=== PATIENT | male | born 1965 | race Caucasian/White ===

== ENCOUNTER 2016-08-23 22:31 | Emergency (ER) | payer MEDICARE, OTHER ==
[~2016-08-23 22:31] MED LIST: ALBUTEROL17 GM INH; ALPRAZOLAM; BENTYL10 MG PO; BENZONATATE PO; BLOOD PRESSURE MED; DULERA 100 MCG/13 GM IH; FLEXERIL; GABAPENTIN300 MG PO; GUAIFENESIN W/C10 M1 PO; LISINOPRIL PO; MEDROL4 MG/DOSE- PO; METOPROLOL SUCC25 MG PO; NAPROXEN; NORCO1 TAB 10/3 PO; OMNICEF300 MG PO; PREDNISONE PO; SEROQUEL PO; TESSALON PERLE100 M1 PO; TRAMADOL HCL50 M2 PO; TRILEPTAL; VICODIN 5/500 T1 TAB; ZITHROMAX PO; ZOFRAN PO
[2016-08-23 23:20] LABS: URINE SOURCE CLEAN CATCH
[2016-08-23 23:23] LABS: URINE APPEARANCE CLEAR; URINE BILIRUBIN NEG (NEG); URINE BLOOD NEG (NEG); URINE COLOR YELLOW; URINE GLUCOSE NEG (NORM); URINE KETONE NEG (NEG); URINE LEUKOCYTE ESTERASE NEG (NEG); URINE NITRATE NEG (NEG); URINE PROTEIN NEG (NEG); URINE UROBILINOGEN 0.2 MG/DL (NORM)
[2016-08-23 23:32] LABS: MICRO INDICATED? NO
[2016-08-23 23:49] LABS: BASOPHIL% 0.7 % (0-2.5); EOSINOPHIL# 0.4 X10e3 (0-0.7); EOSINOPHIL% 5.9 % (0.0-7.0); HEMATOCRIT 46.5 % (38.0-50.0); HEMOGLOBIN 15.7 gm/dL (13.0-16.0); LYMPHOCYTE# 1.7 X10e3 (1.0-3.5); LYMPHOCYTE% 26.7 % (17.0-45.0); MEAN CELL VOLUME 92.4 FL (83-96); MEAN CORPUSCULAR HEMOGLOBIN 31.2 PG (28-34); MEAN CORPUSCULAR HGB CONC 33.7 g/dL (30-36); MEAN PLATELET VOLUME 8.2 FL (6.5-11.5); MONOCYTE# 0.5 X10e3 (0-1.0); MONOCYTE% 7.4 % (3.0-12.0); NEUTROPHIL# 3.8 X10e3 (1.5-7.1); NEUTROPHIL% 59.3 % (40-75); PLATELET COUNT 179 X10e3 (140-420); RED BLOOD COUNT 5.03 X10e (3.90-5.60); WHITE BLOOD COUNT 6.5 X10e3 (4.0-10.5)
[2016-08-24] LABS: DIFF IND NO
[2016-08-24 00:08] LABS: BUN/CREATININE RATIO 20.76; CREATININE SERUM 1.3 mg/dL (0.6-1.4); GLOM FILT RATE Estimated 62.3 mL/min (>60); POTASSIUM 3.9 mmol/L (3.5-5.1)
== END 2016-08-24 01:05 | disposition home or self-care (01) ==
LOC: SED 22:31
PROVIDERS: Emergency Medicine
DX: R10.9 Unspecified abdominal pain (principal); R04.0 Epistaxis; R51 Headache
CPT/HCPCS: 36415; 80048; 81003; 85025; 99284

== ENCOUNTER 2016-11-10 17:07 | Emergency (ER) | payer MEDICARE, OTHER ==
--- NOTE | ~2016-11-10 | CT4 ---
[facility]. [facility] A Service of [facility] & [facility] RADIOLOGY TEXT RESULTS PATIENT: ANAND NEWMAN LOCATION: SED : 61 UNIT #: [id number] AGE: [address]: Scot Burgos MD SEX: M ORDER DR: [id number] [place] [id number] E MR#: [id number] Acc #: ? NAME: ANAND NEWMAN. : 1965 SEX: M STUDY DATE/TIME: 11/10/2016 17:36 UNIT: SED ROOM: STUDY DESCRIPTION: CT Abd and Pelv Wo Cont Attending Physician: Scot Burgos M.D. Ordering Physician: Jose Eduardo Lora M.D. Primary Care Physician: Chris Orosco M.D. MEDICAL IMAGING REPORT This report is preliminary unless electronic signature is present. ADDENDUM CT abdomen and pelvis HISTORY Fell through glass table, short of air, chest pain, cough, headache all over, fell a week ago through glass table. ADDENDUM: Review of the upper abdomen shows stable right adrenal adenoma better demonstrated on today's dedicated CT of the chest. See that study for further assessment. STAT * RESULT Dictated by... Lane Schroeder M.D. Pelon TD: 11/10/2016 20:35 JOB #: [id number] MEDICAL IMAGING REPORT Page 1 of 1
--- NOTE | ~2016-11-10 | CT57 ---
[facility] A Service of [facility] RADIOLOGY TEXT RESULTS PATIENT: ANAND NEWMAN LOCATION: SED : 61 UNIT #: [id number] AGE: [address]: Scto Burgos MD SEX: M ORDER DR: [id number] [place] [id number] E MR#: [id number] Acc #: [id number] NAME: ANAND NEWMAN. : 1965 SEX: M STUDY DATE/TIME: 11/10/2016 19:03 UNIT: SED ROOM: STUDY DESCRIPTION: CT Chest Wo Cont Attending Physician: Scot Burgos M.D. Ordering Physician: Jose Eduardo Lora M.D. Primary Care Physician: Chris Orosco M.D. MEDICAL IMAGING REPORT This report is preliminary unless electronic signature is present. EXAM CT chest 11/10/2016 HISTORY Short of air chest pain, cough, headache all over, fell a week ago through glass table. TECHNIQUE CT of the chest performed without administration of intravenous contrast. Study limited for assessment of trauma in the absence of intravascular contrast. This CT exam was performed with one or more of the following radiation dose reduction techniques: automatic exposure control, adjustment of mA and/or kV according to patient size, and iterative reconstruction. COMPARISON No prior chest CTs for comparison. FINDINGS Thyroid unremarkable. No axillary mediastinal or hilar adenopathy. Trace pericardial fluid. Similar to CT abdomen and pelvis 03/30/2016. The heart is normal in size. There are no pleural effusions. Visualized portions of liver, gallbladder, spleen, pancreas, adrenal glands, notable for stable 2.2 cm right adrenal adenoma demonstrating fat content with CT dense analysis. Upper renal poles unremarkable. Esophagus, stomach, visualized small bowel and colon unremarkable. Pulmonary parenchyma shows centrilobular and paraseptal emphysema more pronounced in the upper lung zones. Dependent atelectasis and/or subpleural linear scarring in the bilateral lower lobes. There is some linear scarring or atelectasis medial segment right middle lobe. There is no evidence of acute infectious or inflammatory disease. There is no suspicious nodule. [facility] A Service of [facility] RADIOLOGY TEXT RESULTS PATIENT: ANAND NEWMAN [place]ATION[place] [facility] [place] 61 UNIT #: [id number] AGE: [address]: Scot Burgos MD SEX: M ORDER DR: No indication of traumatic vascular injury. The bony structures show no acute abnormality. No fracture. No clearly acute body wall soft tissue abnormality. IMPRESSION 1. No traumatic abnormality seen in the chest. 2. Emphysema. 3. Areas of dependent atelectasis and/or subpleural scarring/fibrotic change in the bilateral lower lobes and in the medial segment right middle lobe. There is no clear indication of acute infectious or inflammatory disease in the lungs and there is no suspicious nodule. 4. Trace pericardial fluid. No change from March 2016. 5. 2.2 cm right adrenal adenoma. Stable. Please see today's dedicated CT abdomen and pelvis for further discussion of findings below diaphragm. Dictated by... Lane Schroeder M.D. THIS IS AN ELECTRONICALLY VERIFIED REPORT Lane Schroeder M.D. at 11/11/2016 2:37 PM EVARISTO/martha TD: 11/11/2016 10:40 JOB #: [id number] MEDICAL IMAGING REPORT Page 1 of 1
--- NOTE | ~2016-11-10 | CT4 ---
[facility] A Service of [facility] RADIOLOGY TEXT RESULTS PATIENT: ANAND NEWMAN LOCATION: SED : 61 UNIT #: [id number] AGE: [address]: Scot Burgos MD SEX: M ORDER DR: [id number] [place] [id number] E MR#: [id number] Acc #: [id number] NAME: ANAND NEWMAN. : 1965 SEX: M STUDY DATE/TIME: 11/10/2016 17:36 UNIT: SED ROOM: STUDY DESCRIPTION: CT Abd and Pelv Wo Cont Attending Physician: Scot Burgos M.D. Ordering Physician: Jose Eduardo Lora M.D. Primary Care Physician: Chris Orosco M.D. MEDICAL IMAGING REPORT This report is preliminary unless electronic signature is present. REVISED REPORT SEE ADDENDUM EXAM CT abdomen and pelvis HISTORY Fall, short of air, chest pain. Cough. Headache all over. Fell a week ago through a glass table. Upper abdominal pain. TECHNIQUE CT abdomen and pelvis performed without administration of oral or intravenous contrast. This CT exam was performed with one or more of the following radiation dose reduction techniques: automatic exposure control, adjustment of mA and/or kV according to patient size, and iterative reconstruction. FINDINGS Study limited in the absence of contrast material. Dependent atelectasis at lung bases. Please see dedicated CT chest for full discussion of findings above diaphragm. Heart normal in size. Trace pericardial fluid anteriorly and inferiorly. The liver, gallbladder, spleen, pancreas, adrenal glands unremarkable. Punctate nonobstructing right lower pole renal calculus unchanged from CT dated 03/30/2016. Small right lower pole renal cyst unchanged. No acute renal findings. CT Pelvis: No renal adenopathy. Urinary bladder unremarkable. No fluid collections in the pelvis or abdomen. No pelvic or retroperitoneal adenopathy. Distal esophagus, stomach, small bowel, appendix unremarkable. Colon unremarkable. Atherosclerotic arterial calcifications. No aneurysm. No evidence of traumatic vascular injury. Bony structures show degenerative changes in the spine. No fracture. No STS. [facility] A Service of [facility] RADIOLOGY TEXT RESULTS PATIENT: ANAND NEWMAN LOCATION: SED : 61 UNIT #: [id number] AGE: [address]: Scot Burgos MD SEX: M ORDER DR: acute soft tissue body wall abnormality suggested. IMPRESSION 1. No evidence of traumatic abnormality in the abdomen or pelvis. No acute abnormality is seen. 2. Trace pericardial fluid. Similar appearance on comparison study March 2016. 3. Dependent atelectasis lung bases. 4. Punctate nonobstructing renal calculus lower pole right kidney. No acute renal findings. 5. Please see remainder of ancillary findings in body report above. Dictated by... Lane Schroeder M.D. THIS IS AN ELECTRONICALLY VERIFIED REPORT Lane Schroeder M.D. at 11/11/2016 2:37 PM LOLYK/martha TD: 11/11/2016 09:43 JOB #: [id number] ADDENDUM CT abdomen and pelvis HISTORY Fell through glass table, short of air, chest pain, cough, headache all over, fell a week ago through glass table. ADDENDUM: Review of the upper abdomen shows stable right adrenal adenoma better demonstrated on today's dedicated CT of the chest. See that study for further assessment. STAT * RESULT Dictated by... Lane Schroeder M.D. THIS IS AN ELECTRONICALLY VERIFIED REPORT Lane Schroeder M.D. at 11/13/2016 2:44 PM LOLYK/geoff [facility]. [facility] A Service of [facility] RADIOLOGY TEXT RESULTS PATIENT: ANAND NEWMAN LOCATION: SED : 61 UNIT #: [id number] AGE: [address]: Scot Burgos MD SEX: M ORDER DR: TD: 11/10/2016 20:35 JOB #: [id number] CC: Sovera/invision Please Delete MEDICAL IMAGING REPORT Page 1 of 1
--- NOTE | ~2016-11-10 | CT71 ---
[facility] A Service of [facility] RADIOLOGY TEXT RESULTS PATIENT: ANAND NEWMAN LOCATION: SED : 61 UNIT #: [id number] AGE: [address]: Scot Burgos MD SEX: M ORDER DR: [id number] [place] [id number] E MR#: [id number] Acc #: [id number] NAME: ANAND NEWMAN. : 1965 SEX: M STUDY DATE/TIME: 11/10/2016 19:01 UNIT: SED ROOM: STUDY DESCRIPTION: CT Head Wo Contrast Attending Physician: Scot Burgos M.D. Ordering Physician: Jose Eduardo Lora M.D. Primary Care Physician: Chris Orosco M.D. MEDICAL IMAGING REPORT This report is preliminary unless electronic signature is present. EXAM Head CT without HISTORY Fall; short of air, chest pain, cough, headache all over. Fell a week ago through a glass table. TECHNIQUE Routine noncontrasted head CT is reviewed. This CT exam was performed with one or more of the following radiation dose reduction techniques: automatic exposure control, adjustment of mA and/or kV according to patient size, and iterative reconstruction. COMPARISON There is a previous from 01/25/2015. FINDINGS There is no displaced calvarial fracture. The mastoid air cells are clear. The paranasal sinuses show partial opacification of ethmoid air cells, but no air-fluid level. The temporomandibular joints are located. There is no evidence for acute intracranial hemorrhage or extraaxial fluid collection. The ventricles are normal in size and configuration and the sheldon-white junction is well-maintained. The basilar cisterns are patent. There is no intracranial mass effect and no acute cortical infarct is suspected. IMPRESSION Negative noncontrast head CT. Dictated by... Amanda Greene M.D. [facility] A Service of [facility] RADIOLOGY TEXT RESULTS PATIENT: ANAND NEWMAN LOCATION: SED : 61 UNIT #: [id number] AGE: [address]: Scot Burgos MD SEX: M ORDER DR: THIS IS AN ELECTRONICALLY VERIFIED REPORT Amanda Greene M.D. at 11/13/2016 6:11 AM Ora TD: 11/11/2016 09:55 JOB #: [id number] MEDICAL IMAGING REPORT Page 1 of 1
--- NOTE | ~2016-11-10 | EKG ---
PATIENT: ANAND NEWMAN UNIT #: [id number] Ventricular Rate: 76 BPM Atrial Rate: 76 BPM P-R Interval: 154 ms QRS Duration: 78 ms Q-T Interval: 360 ms QTC Calculation(Bezet): 405 ms P Dawn: 68 degrees Calculated R Dawn: 23 degrees Calculated T Dawn: 61 degrees Diagnosis Line: Normal sinus rhythm Diagnosis Line: Low voltage QRS Diagnosis Line: Borderline ECG Diagnosis Line: When compared with ECG of 19-SEP-2015 16:47, Diagnosis Line: No significant change was found Diagnosis Line: Confirmed by REENA KENNEDY MD ([id number]) on Diagnosis Line: 11/18/2016 3:17:03 PM INTERPRETING MD: JUAN
[2016-11-10 17:54] LABS: URINE SOURCE CLEAN CATCH
[2016-11-10 17:59] LABS: URINE APPEARANCE CLEAR; URINE BILIRUBIN NEG (NEG); URINE BLOOD NEG (NEG); URINE COLOR YELLOW; URINE GLUCOSE NEG (NORM); URINE KETONE NEG (NEG); URINE LEUKOCYTE ESTERASE NEG (NEG); URINE NITRATE NEG (NEG); URINE PH 5.5 (5-8); URINE PROTEIN NEG (NEG); URINE UROBILINOGEN 0.2 MG/DL (NORM)
[2016-11-10 18:03] LABS: MICRO INDICATED? NO
[2016-11-10 18:06] LABS: BASOPHIL# 0.1 X10e3 (0-0.3); EOSINOPHIL# 0.3 X10e3 (0-0.7); EOSINOPHIL% 3.8 % (0.0-7.0); HEMATOCRIT 44.6 % (38.0-50.0); HEMOGLOBIN 15.1 gm/dL (13.0-16.0); LYMPHOCYTE# 1.8 X10e3 (1.0-3.5); LYMPHOCYTE% 22.6 % (17.0-45.0); MEAN CELL VOLUME 95.2 FL (83-96); MEAN CORPUSCULAR HEMOGLOBIN 32.3 PG (28-34); MEAN CORPUSCULAR HGB CONC 33.9 g/dL (30-36); MEAN PLATELET VOLUME 8.5 FL (6.5-11.5); MONOCYTE# 0.6 X10e3 (0-1.0); MONOCYTE% 6.9 % (3.0-12.0); NEUTROPHIL# 5.3 X10e3 (1.5-7.1); NEUTROPHIL% 65.7 % (40-75); PLATELET COUNT 176 X10e3 (140-420); RED BLOOD COUNT 4.68 X10e (3.90-5.60)
[2016-11-10 18:08] LABS: DIFF IND NO
[2016-11-10 18:10] LABS: POC - CKMB <1.0 ng/mL (0.0-7.9)
[2016-11-10 18:10] LABS: AMPHETAMINE NEG (NEG); BARBITURATES NEG (NEG); BENZODIAZEPINES POS (NEG); COCAINE NEG (NEG); MARIJUANA NEG (NEG); OPIATES NEG (NEG); TRICYCLIC ANTIDEPRESSANTS POS (NEG); U METHADONE NEG (NEG)
[2016-11-10 18:11] LABS: POC - TROPONIN <0.05 ng/mL (<=0.05)
[2016-11-10 18:17] LABS: ALBUMIN SERUM 4.1 g/dL (3.5-5.0); BILIRUBIN,TOTAL 0.4 mg/dL (0.2-2.0); CALCIUM SERUM 9.5 mg/dL (8.4-10.2); GLOM FILT RATE Estimated 85.6 mL/min (>60); POTASSIUM 4.1 mmol/L (3.5-5.1); PROTEIN TOTAL SERUM 6.7 g/dL (6.0-8.3)
== END 2016-11-10 21:03 | disposition home or self-care (01) ==
LOC: SED 17:07
PROVIDERS: Emergency Medicine
DX: S30.0XXA Contusion of lower back and pelvis, initial encounter (principal); E78.5 Hyperlipidemia, unspecified; I10 Essential (primary) hypertension; F41.9 Anxiety disorder, unspecified; F17.210 Nicotine dependence, cigarettes, uncomplicated; W18.39XA Other fall on same level, initial encounter; Y92.098 Other place in other non-institutional residence as the place of occurrence of the external cause
CPT/HCPCS: 70450; 71250; 74176; 80053; 80307; 81003; 82375; 82553; 84484; 85025; 93005; 94640; 96361; 96374; 96375; 99284; J2270; J2405; J2930